=== PATIENT | female | born 1945 | race Caucasian/White ===

== ENCOUNTER → 2018-03-11 | Outpatient (CLI) | payer OTHER ==
[~2018-03-11] MED LIST: Non-Aspirin Ex500 M1; OMEPRAZOLE MAGN20 MG PO; RANI150 PO
== END | disposition home or self-care (01) ==
LOC: LAB SHORT 17:44 → LAB EV 17:44
DX: N39.0 Urinary tract infection, site not specified (principal)
CPT/HCPCS: 87077; 87086; 87186

== ENCOUNTER → 2018-10-23 | Outpatient (CLI) | payer OTHER | END | disposition home or self-care (01) | LOC: PLD 09:58 → LAB SHORT 09:58 | DX: D48.5 Neoplasm of uncertain behavior of skin (principal) | CPT/HCPCS: 88305 ==

== ENCOUNTER → 2019-02-06 | Outpatient (CLI) | payer OTHER | END | disposition home or self-care (01) | LOC: LAB SHORT 16:11 → LAB EV 16:11 | DX: N39.0 Urinary tract infection, site not specified (principal) | CPT/HCPCS: 87077; 87086; 87186 ==

== ENCOUNTER → 2019-02-27 | Outpatient (CLI) | payer OTHER | END | disposition home or self-care (01) | LOC: LAB EV 14:48 → LAB SHORT 14:48 | DX: N39.0 Urinary tract infection, site not specified (principal) | CPT/HCPCS: 87086 ==

== ENCOUNTER 2019-03-30 08:27 | Day surgery (SDC) | payer OTHER ==
[~2019-03-30] VITALS: Ht 162.6 cm; Wt 72.8 kg
--- NOTE | 2019-03-30 11:07 | NUR ---
03/30/19 1107 Marilee Cerda PT IS COMPLAINING OF LEFT FOREHEAD/CONGREGATION PAIN. SHE STATES IT IS 9 OUT OF 10 ON THE PAIN SCALE. SHE STATES SHE NORMALLY DOESN'T DRINK CAFFEINE AND IS WONDERING WHY THE PAIN. ALSO COMPLAINING OF LOWER ABDOMINAL PAIN 7 OUT OF 10.
== END 2019-03-30 11:47 | disposition home or self-care (01) ==
LOC: ORSCSDS 08:27
PROVIDERS: Internal Medicine Gastroenterology
PROC: 0DBM8ZX Excision of Descending Colon, Via Natural or Artificial Opening Endoscopic, Diagnostic (ICD-10-PCS; principal; 2019-03-30 10:00)
DX: R10.84 Generalized abdominal pain (principal); D12.4 Benign neoplasm of descending colon; K57.30 Diverticulosis of large intestine without perforation or abscess without bleeding; Z86.010 Personal history of colon polyps; K21.9 Gastro-esophageal reflux disease without esophagitis; I10 Essential (primary) hypertension; Z79.899 Other long term (current) drug therapy
CPT/HCPCS: 88305; J2405; J2704; J7120

== ENCOUNTER → 2019-11-04 | Outpatient (CLI) | payer OTHER | END | disposition home or self-care (01) | LOC: LAB SHORT 11:03 → PLD 11:03 | DX: D48.5 Neoplasm of uncertain behavior of skin (principal) | CPT/HCPCS: 88305 ==

== ENCOUNTER → 2020-06-21 | Outpatient (CLI) | payer OTHER | END | disposition home or self-care (01) | LOC: LAB SHORT 07:23 → PLD 07:23 | DX: L82.1 Other seborrheic keratosis (principal) | CPT/HCPCS: 88305 ==

== ENCOUNTER → 2021-07-25 | Outpatient (CLI) | payer OTHER | END | disposition home or self-care (01) | LOC: LAB SHORT 06:00 → LAB FUT 05-11 10:10 | DX: N20.0 Calculus of kidney (principal) | CPT/HCPCS: 81050 ==

== ENCOUNTER → 2021-10-18 | Outpatient (CLI) | payer OTHER | END | disposition home or self-care (01) | LOC: PLD 11:14 → LAB SHORT 11:14 | DX: D48.5 Neoplasm of uncertain behavior of skin (principal) | CPT/HCPCS: 88305 ==

== ENCOUNTER 2024-12-10 10:04 | Day surgery (SDC) | payer OTHER ==
[~2024-12-10] VITALS: Ht 160 cm; Wt 69.7 kg
[~2024-12-10 10:04] MED LIST changes: +Glycopyrrolate 0.2 MG/ML 1MLVIAL ONE; +Lactated Ringer's 1,000 ML IV ONE; +Lidocaine 2% 5 ML SDV ONE; +Lidocaine HCl/Pf 1% 5 ML VIAL ONE; +Methylene Blue 1% 100 MG/10 ML VIAL ONE; +Ondansetron HCl 2 MG / ML 2ML Vial ONE; +ePHEDrine Sulfate 50 MG/ML 1ML Injection ONE; +propofoL 50 ML IV ONE
[2024-12-10] MEDS ORDERED: ALEN70 (11:06)
[2024-12-10] MEDS ORDERED: Lactated Ringer's 1,000 ML IV ONE ×2 (11:39→12:43)
[2024-12-10] MEDS ORDERED: Ondansetron HCl 2 MG / ML 2ML Vial ONE (12:26)
[2024-12-10] MEDS ORDERED: propofoL 50 ML IV ONE (12:31)
[2024-12-10 13:18] VITALS: BP 137/73
--- NOTE | 2024-12-10 13:20 | NUR ---
12/10/24 1320 Isaiah Wagner PT WAS AROUSABLE IN ENDO ROOM BEFORE TRANSFER. PT WAS VERY SLEEPY IN SDU, PT FELL BACK ASLEEP ONCE IN SDU. PT MORE AWAKE AND ALERT AROUND 1308. VSS IN SDU.
--- NOTE | 2024-12-10 15:54 | NUR ---
12/10/24 1554 Isaiah Wagner LATE NOTE: THIS RN CONSULTED WITH DR. GARSIA REGARDING THIS PATIENT'S PREVIOUS PHX OF WRETCHING DURING EGD AND TODAY'S CASE PT WRETCHING DESPITE ZOFRAN GIVEN BEFORE CASE. DR. GARSIA STATED PT SHOULD BE MAC IN FUTURE CASES D/T WRETCHING COMPLICATIONS AND INCREASED RISK FOR ASPIRATION. MAR WAS UPDATED FOR INCREASE COMMUNICATION AND DR. MEHTA WAS MADE AWARE OF THE PROFESSIONAL OPINION OF DR. GARSIA.
== END 2024-12-10 13:28 | disposition home or self-care (01) ==
LOC: ORSCSDS 10:04
PROVIDERS: Internal Medicine Gastroenterology
PROC: 0DBL8ZX Excision of Transverse Colon, Via Natural or Artificial Opening Endoscopic, Diagnostic (ICD-10-PCS; principal; 2024-12-10 11:30)
DX: Z12.11 Encounter for screening for malignant neoplasm of colon (principal); Z86.0101 Personal history of adenomatous and serrated colon polyps; D12.3 Benign neoplasm of transverse colon; Z15.09 Genetic susceptibility to other malignant neoplasm; K57.30 Diverticulosis of large intestine without perforation or abscess without bleeding; K64.4 Residual hemorrhoidal skin tags
CPT/HCPCS: 88305; J2003; J2405; J2704; J7120; Q9968

== ENCOUNTER → 2025-07-15 | Outpatient (CLI) | payer OTHER ==
[~2025-07-15] MED LIST changes: +ALEN70; -Glycopyrrolate 0.2 MG/ML 1MLVIAL ONE; -Lactated Ringer's 1,000 ML IV ONE; -Lidocaine 2% 5 ML SDV ONE; -Lidocaine HCl/Pf 1% 5 ML VIAL ONE; -Methylene Blue 1% 100 MG/10 ML VIAL ONE; -Ondansetron HCl 2 MG / ML 2ML Vial ONE; -ePHEDrine Sulfate 50 MG/ML 1ML Injection ONE; -propofoL 50 ML IV ONE
[2025-07-15 11:53] LABS: Calcium, Urine 27.5 mg/dL (< 17.5); Calcium, Urine Calculation 481.3 mg/24hrs (42.0-353.0)
== END ==
LOC: LAB 07:57 → LAB SHORT 07:57 → LAB FUT 05-27 10:05
PROVIDERS: Internal Medicine
DX: M81.0 Age-related osteoporosis without current pathological fracture (principal); E21.0 Primary hyperparathyroidism
CPT/HCPCS: 81050; 82340